=== PATIENT | male | born 1990 | race Two or more races ===

== ENCOUNTER 2022-08-24 09:00 | Inpatient (IN) | payer OTHER ==
[~2022-08-24] VITALS: Ht 172.7 cm; Wt 84.8 kg
[2022-08-24] MEDS ORDERED: KETOROLAC TROMETH 30 MG/ML 1ML VIAL IV ONE (10:00)
[2022-08-24] MEDS ORDERED: TETANUS-DIPTH-ACEL PERTUSSIS 0.5ML SYR Tdap IM ONE (10:15)
[2022-08-24 11:15] LABS: Basophils # (auto) 0 10 ^3/uL (0-0.2); Basophils % (auto) 0.5 % (0.0-2.0); Eosinophils # (auto) 0.1 10 ^3/uL (0-0.8); Eosinophils % (auto) 0.7 % (0.0-7.0); Hematocrit 38.2 % (41.0-53.0); Hemoglobin 13.2 g/dL (13.5-17.5); Lymphocytes # (auto) 1.3 10 ^3/uL (0.4-5.4); Lymphocytes % (auto) 16.7 % (10.0-50.0); Mean Corpuscular Hemoglobin 32.2 pg (28.0-32.0); Mean Corpuscular Hgb Conc. 34.7 g/dL (32.0-36.0); Mean Corpuscular Volume 92.8 fL (80.0-100.0); Monocytes # (auto) 0.8 10 ^3/uL (0-1.3); Monocytes % (auto) 10.1 % (0.0-12.0); Neutrophils # (auto) 5.5 10 ^3/uL (1.6-8.6); Red Blood Cells 4.11 10^6/uL (4.5-5.90); Red Cell Distribution Width 12.4 % (11.8-14.3); White Blood Cell 7.6 10^3/uL (4.4-10.8)
[2022-08-24] MEDS ORDERED: VANCOMYCIN PER PHARMACY 0 MG IV SCH ×2 (11:15→16:00)
[2022-08-24 11:31] LABS: Alanine Aminotransferase 48 U/L (16-61); Albumin 3.9 g/dL (3.4-5.0); Anion Gap 8 (5-15); Aspartate Aminotransferase 23 U/L (15-37); Blood Urea Nitrogen 14 mg/dL (7-18); Carbon Dioxide 28 mmol/L (21-32); Chloride 97 mmol/L (98-107); GFR African American 167 mL/min; GFR Non-African American 138 mL/min; Glucose 96 mg/dL (74-106); Potassium 4.2 mmol/L (3.5-5.1); Sodium 133 mmol/L (136-145)
[2022-08-24 11:34] LABS: Alkaline Phosphatase 81 U/L (45-117); Bilirubin, Total 0.3 mg/dL (0.2-1.0)
[2022-08-24 11:47] LABS: CRP High Sensitivity < 0.016 mg/dL (< 0.3)
[2022-08-24] MEDS ORDERED: VANCOMYCIN 1GM/250ML 250 ML IV ONE (12:30)
[2022-08-24] MEDS: KETOROLAC TROMETH 30 MG/ML 1ML VIAL IV PRN (14:51)
[2022-08-24] MEDS ORDERED: MORPHINE SULFATE INJ 2 MG/ml SYRG IV PRN (16:00)
[2022-08-24] MEDS ORDERED: NITROGLYCERIN 0.4 MG SL TAB SL PRN (16:00)
[2022-08-24] MEDS: HYDROcodone-ACET 10/325MG TAB PO PRN ×2 (17:13→23:08)
[2022-08-25] VITALS (7 sets, daily range): BP systolic 122–139; BP diastolic 67–86
[2022-08-25] MEDS: VANCOMYCIN 1GM/250ML 250 ML IV SCH ×3 (02:01→22:17)
[2022-08-25] MEDS: KETOROLAC TROMETH 30 MG/ML 1ML VIAL IV PRN (02:10)
[2022-08-25] MEDS: HYDROcodone-ACET 10/325MG TAB PO PRN ×5 (03:00→22:21)
[2022-08-25] MEDS ORDERED: AMIT25TA12 PO (04:13)
[2022-08-25] MEDS ORDERED: GABA100C9 PO (04:13)
[2022-08-25] MEDS ORDERED: DULO60CA PO ×2 (04:13)
[2022-08-25] MEDS ORDERED: [UNRECOGNIZED DRUG - CODE] PO (04:13)
[2022-08-25] MEDS ORDERED: NAP500T PO (04:13)
[2022-08-25] MEDS ORDERED: FAMO-12 PO (04:13)
[2022-08-25] MEDS ORDERED: MIRT1TAB40 PO (04:13)
[2022-08-25] MEDS: ENOXAPARIN SOD 40 MG/0.4 ML SYRINGE SC SCH (08:57)
[2022-08-25 14:54] LABS: Hepatitis C Antibody Reactive (Negative)
[2022-08-25 22:44] LABS: BUN/Creatinine Ratio 17.7; Calcium 9.3 mg/dL (8.5-10.1); Potassium 4.5 mmol/L (3.5-5.1)
[2022-08-26 05:00] VITALS: BP 131/74
[2022-08-26] MEDS: HYDROcodone-ACET 10/325MG TAB PO PRN ×4 (05:13→21:50)
[2022-08-26] MEDS: VANCOMYCIN 1GM/250ML 250 ML IV SCH ×3 (05:13→21:42)
[2022-08-26 06:25] LABS: Potassium 4.8 mmol/L (3.5-5.1)
[2022-08-26 06:31] LABS: Albumin 3.7 g/dL (3.4-5.0); BUN/Creatinine Ratio 18.1; Calcium 9.3 mg/dL (8.5-10.1); Phosphorus 4.3 mg/dL (2.5-4.90)
[2022-08-26 09:00] VITALS: BP 140/80
[2022-08-26] MEDS: ENOXAPARIN SOD 40 MG/0.4 ML SYRINGE SC SCH (10:01)
[2022-08-26 13:00] VITALS: BP 141/84
[2022-08-26] MEDS ORDERED: CIPR500T4 PO (14:51)
[2022-08-26 17:00] VITALS: BP 127/94
[2022-08-26] MEDS: KETOROLAC TROMETH 30 MG/ML 1ML VIAL IV PRN (20:34)
[2022-08-26 22:00] VITALS: BP 129/77
[2022-08-27 05:00] VITALS: BP 119/67
[2022-08-27] MEDS: VANCOMYCIN 1GM/250ML 250 ML IV SCH ×2 (05:21→17:37)
[2022-08-27 09:00] VITALS: BP 125/74
[2022-08-27] MEDS: ENOXAPARIN SOD 40 MG/0.4 ML SYRINGE SC SCH (09:56)
[2022-08-27] MEDS: HYDROcodone-ACET 10/325MG TAB PO PRN ×4 (09:56→22:05)
[2022-08-27 12:59] VITALS: BP 146/76
[2022-08-27 17:00] VITALS: BP 146/87
[2022-08-27 22:00] VITALS: BP 132/76
[2022-08-28 05:00] VITALS: BP 117/53
[2022-08-28] MEDS: VANCOMYCIN 1GM/250ML 250 ML IV SCH ×2 (05:43→17:56)
[2022-08-28] MEDS: HYDROcodone-ACET 10/325MG TAB PO PRN ×4 (07:29→21:44)
[2022-08-28 09:00] VITALS: BP 146/92
[2022-08-28] MEDS: ENOXAPARIN SOD 40 MG/0.4 ML SYRINGE SC SCH (09:36)
[2022-08-28 13:00] VITALS: BP 144/84
[2022-08-28 16:59] VITALS: BP 139/64
[2022-08-28] MEDS: KETOROLAC TROMETH 30 MG/ML 1ML VIAL IV PRN ×2 (21:43→23:49)
[2022-08-28 22:00] VITALS: BP 136/82
[2022-08-29] MEDS: HYDROcodone-ACET 10/325MG TAB PO PRN ×5 (02:43→22:38)
[2022-08-29] MEDS: KETOROLAC TROMETH 30 MG/ML 1ML VIAL IV PRN (04:47)
[2022-08-29 05:00] VITALS: BP 134/68
[2022-08-29] MEDS: VANCOMYCIN 1GM/250ML 250 ML IV SCH ×2 (06:43→16:20)
[2022-08-29 08:00] VITALS: BP 127/61
[2022-08-29 08:46] VITALS: BP 127/61
[2022-08-29] MEDS: ENOXAPARIN SOD 40 MG/0.4 ML SYRINGE SC SCH (09:56)
[2022-08-29 13:07] VITALS: BP 111/68
[2022-08-29 17:25] VITALS: BP 132/69
[2022-08-29 21:44] VITALS: BP 129/65
[2022-08-30] MEDS: VANCOMYCIN 1GM/250ML 250 ML IV SCH ×3 (02:01→22:21)
[2022-08-30 05:00] VITALS: BP 111/63
[2022-08-30] MEDS: HYDROcodone-ACET 10/325MG TAB PO PRN ×4 (06:54→22:38)
[2022-08-30 09:00] VITALS: BP 125/61
[2022-08-30] MEDS: ENOXAPARIN SOD 40 MG/0.4 ML SYRINGE SC SCH (09:43)
[2022-08-30 13:00] VITALS: BP 121/65
[2022-08-30 17:00] VITALS: BP 129/81
[2022-08-30 22:00] VITALS: BP 125/78
[2022-08-31 05:00] VITALS: BP 103/56
[2022-08-31] MEDS: HYDROcodone-ACET 10/325MG TAB PO PRN (07:06)
[2022-08-31 08:00] VITALS: BP 135/71
[2022-08-31] MEDS: VANCOMYCIN 1GM/250ML 250 ML IV SCH (08:18)
[2022-08-31 09:00] VITALS: BP 135/71
[2022-08-31] MEDS: ENOXAPARIN SOD 40 MG/0.4 ML SYRINGE SC SCH (10:07)
[2022-08-31 13:00] VITALS: BP 110/68
== END 2022-08-31 14:42 | disposition left against medical advice (07) | DRG 603 ==
LOC: EEVIPCON 09:00 → ER 09:00 → OVERFLOW 15:52 → CENTRAL 08-25 02:25 → EAST 08-28 18:01
PROVIDERS: ADMIT Family Medicine; ATTEND Internal Medicine
PROC: 05HC33Z Insertion of Infusion Device into Left Basilic Vein, Percutaneous Approach (ICD-10-PCS; principal; 2022-08-27)
PROC: B54NZZA Ultrasonography of Left Upper Extremity Veins, Guidance (ICD-10-PCS; 2022-08-27)
DX: L03.115 Cellulitis of right lower limb (principal); B19.20 Unspecified viral hepatitis C without hepatic coma; B95.62 Methicillin resistant Staphylococcus aureus infection as the cause of diseases classified elsewhere; Z20.822 Contact with and (suspected) exposure to COVID-19; Z53.29 Procedure and treatment not carried out because of patient's decision for other reasons
CPT/HCPCS: 36415; 73562; 73721; 80048; 80053; 80069; 80202; 82565; 83605; 85025; 86141; 86803; 87040; 87077; 87081; 87186; 87205; 87340; 87426; 90471; 90715; 96365; 96366; 96375; 96376; G0378; J1885